=== PATIENT | male | born 1990 | race Caucasian/White ===

== ENCOUNTER 2018-10-02 14:07 | Emergency (ER) | payer MEDICAID ==
[~2018-10-02] VITALS: Ht 185.4 cm; Wt 88.6 kg
[2018-10-02 14:38] VITALS: Ht 185.4 cm; Wt 88.6 kg
[2018-10-02] MEDS ORDERED: TORADOL10 MG PO (17:21)
[2018-10-02 17:33] VITALS: BP 124/82
== END 2018-10-02 17:33 | disposition home or self-care (01) ==
LOC: D.ER 14:07
DX: S30.0XXA Contusion of lower back and pelvis, initial encounter (principal); W01.0XXA Fall on same level from slipping, tripping and stumbling without subsequent striking against object, initial encounter; Y93.89 Activity, other specified; Y92.89 Other specified places as the place of occurrence of the external cause

== ENCOUNTER 2019-07-15 15:35 | Emergency (ER) | payer SELFPAY ==
[~2019-07-15] VITALS: Ht 185.4 cm; Wt 127.3 kg
[~2019-07-15 15:35] MED LIST: TORADOL10 MG PO
[2019-07-15 15:38] VITALS: Ht 185.4 cm; Wt 127.3 kg
[2019-07-15 16:31] VITALS: BP 132/78
== END 2019-07-15 16:32 | disposition home or self-care (01) ==
LOC: D.ER 15:35
DX: S51.012A Laceration without foreign body of left elbow, initial encounter (principal); W01.10XA Fall on same level from slipping, tripping and stumbling with subsequent striking against unspecified object, initial encounter; Y93.9 Activity, unspecified; Y92.9 Unspecified place or not applicable